=== PATIENT | female | born 1960 | race African-American/Black ===

== ENCOUNTER 2022-02-11 07:00 | Emergency (ER) | payer BC, OTHER ==
[~2022-02-11] VITALS: Ht 157.5 cm; Wt 134.0 kg
[2022-02-11 07:15] VITALS: BP 186/90
[2022-02-11 08:38] LABS: Basophils # (auto) 0 10 ^3/uL (0-0.2); Eosinophils # (auto) 0.2 10 ^3/uL (0-0.8); Monocytes # (auto) 0.6 10 ^3/uL (0-1.3)
[2022-02-11 08:40] LABS: Basophils % (auto) 0.4 % (0.0-2.0); Hematocrit 37.5 % (36.0-46.0); Hemoglobin 11.7 g/dL (12.2-16.2); Lymphocytes % (auto) 15.1 % (10.0-50.0); Mean Corpuscular Hemoglobin 26.1 pg (28.0-32.0); Mean Corpuscular Hgb Conc. 31.2 g/dL (32.0-36.0); Mean Corpuscular Volume 83.7 fL (80.0-100.0); Monocytes % (auto) 9.1 % (0.0-12.0); Neutrophils # (auto) 4.6 10 ^3/uL (1.6-8.6); Neutrophils % (auto) 72.4 % (37.0-80.0); Red Blood Cells 4.48 10^6/uL (4.0-5.20); White Blood Cell 6.4 10^3/uL (4.4-10.8)
[2022-02-11 09:09] LABS: BUN/Creatinine Ratio 11.8; Bilirubin, Total 0.5 mg/dL (0.2-1.0); Calcium 8.5 mg/dL (8.5-10.1)
[2022-02-11] MEDS ORDERED: IOHEXOL 350 MG/ML 100ML IJ ONE (10:31)
[2022-02-11] MEDS ORDERED: IBUPROFEN 600 MG TAB PO ONE (14:45)
[2022-02-11] MEDS ORDERED: CYCLOBENZAPRINE HCL 10 MG TAB PO ONE (14:45)
[2022-02-11 16:27] LABS: Urine Specific Gravity > 1.050 (1.001-1.035)
[2022-02-11 16:28] LABS: Urine Blood Trace /uL (Negative)
== END 2022-02-11 22:33 | disposition home or self-care (01) ==
LOC: ER 07:00
DX: R10.32 Left lower quadrant pain (principal); R07.81 Pleurodynia; I10 Essential (primary) hypertension; Z88.1 Allergy status to other antibiotic agents; V43.52XA Car driver injured in collision with other type car in traffic accident, initial encounter; Y93.89 Activity, other specified; Y92.410 Unspecified street and highway as the place of occurrence of the external cause; Y99.8 Other external cause status
CPT/HCPCS: 36415; 71045; 71275; 74176; 80053; 81003; 83690; 84484; 85025; 85379; 93005; 99285; Q9967